=== PATIENT | female | born 1985 | race Caucasian/White ===

== ENCOUNTER 2017-04-18 06:26 | Emergency (ER) | payer OTHER ==
--- NOTE | 2017-04-18 11:48 | DIAGNOSTIC IMAGING REPORT ---
PROCEDURE: US OB 1ST TRIMESTER W/TRANSVAG INDICATION: ABNORMAL BLEEDING TECHNIQUE: Kate scale, color, and spectral Doppler transabdominal and endovaginal sonographic images of the first trimester gravid uterus were obtained. COMPARISON: None. FINDINGS: TRANSABDOMINAL SCANS: There is an early intrauterine gestational sac. TRANSVAGINAL SCANS: There is an early viable intrauterine with cardiac activity (162). [place]-rump length 2.0 cm (8.5 weeks). Normal amniotic fluid. There is a 2.1 cm subchorionic hemorrhage. Normal cervix length (4 cm). Right ovary is of normal size with a partially collapsed right ovarian cyst. Small amount of free fluid. There is a 3 cm left ovarian cyst. IMPRESSION: 1. Viable intrauterine at 8.5 weeks menstrual age (plus or minus 0.7 weeks). CYNDIE is 11/24/2017. 2. There is a 2.1 cm subchorionic hemorrhage. 3. There is a partially collapsed right ovarian cyst with small amount of free fluid in the pelvis. A concurrent right adnexal ectopic is unlikely (1:40,000). 4. There is a 3 cm left ovarian simple cyst. 5. Findings discussed with Dr. Harrison.
--- NOTE | 2017-04-18 11:56 | ED CLINICAL REPORT ---
Clinical Report - Physicians/Mid Levels [facility] [address] [place] [address] 04/18/2017 6:27 Patient: ROSE MARIE HENDRICKSON Time Seen: 0630. Arrived- By private vehicle. Historian- patient. HISTORY OF PRESENT ILLNESS Chief Complaint: VAGINAL BLEEDING. This started today. She has had heavy vaginal bleeding (large clot described as tennis ball sized). Is still present but is improving. It was abrupt in onset and has been intermittent but is not gone now. Gestational age is weeks, (about 12 weeks ). (Has care. No ultrasound. Blood work ordered. ). Similar symptoms previously: None. Recent medical care: Not recently seen/assessed. REVIEW OF SYSTEMS No nausea, vomiting, black stools, bloody stools or double vision. No fainting episodes, fever, difficulty breathing, chest pain or skin rash. no weakness. no dizziness. All systems otherwise negative, except as recorded above. PAST HISTORY See nurses notes. Medications: None. Allergies: None. SOCIAL HISTORY Never smoker. No alcohol use or drug use. No recent travel. Is a local resident. ADDITIONAL NOTES The nursing notes have been reviewed. PHYSICAL EXAM Vital Signs: 04/18/2017 06:31 BP: 142/37. HR: 99. RR: 14. O2 saturation: 100%. Temp: 97.6 F. Pain level now: 0/10. Blood pressure normal. Oxygen saturation normal. Appearance: Alert. Oriented X3. No acute distress. HEENT: Normal external inspection. Eyes: No pale conjunctivae. ENT: Pharynx normal. No pharyngeal erythema. CVS: Heart sounds normal. Respiratory: No respiratory distress. Breath sounds normal. Chest nontender. Abdomen: Soft and nontender. Bowel sounds normal. Pelvic: Normal external exam. No contractions present. (mild moderate right adnexal tenderness with left sided tenderness. No adnexal masses. No active bleeding. Normal-appearing external female genitalia. Cervical os is closed. No cervical motion tenderness. No lesions. No abnormal discharge. Exam performed at all times with MARY noriega). Skin: Skin warm and dry. Normal skin color. No rash. Normal skin turgor. Extremities: Extremities nontender. No pathologic edema. LABS, X-RAYS, AND EKG Pelvic Sonogram: viable intrauterine with possible ectopic in the right adnexa. Physiologic free fluid. not concerning for blood. The study was independently viewed by me and interpreted by the radiologist. The study was discussed with the radiologist (Via phone). Laboratory Tests: UA-Culture if indicated: (DAWSON: 04/18/2017 08:05) ( [facility] 04/18/2017 08:36) Final results Test Result Flag Units (Reference) URINE COLOR YELLOW URINE APPEARANCE CLEAR URINE GLUCOSE NEGATIVE (NEGATIVE) URINE BILIRUBIN NEGATIVE (NEGATIVE) URINE KETONE NEGATIVE (NEGATIVE) URINE SPECIFIC GRAVITY <= 1.005 L (1.010-1.030) URINE PH 6.0 (5.0-8.0) URINE PROTEIN NEGATIVE (NEGATIVE) URINE UROBILINOGEN 0.2 EU/dL (0.2-1.0) URINE NITRITE NEGATIVE (NEGATIVE) URINE BLOOD NEGATIVE (NEGATIVE) URINE LEUK ESTERASE NEGATIVE (NEGATIVE) URINE RBC RARE rbc/hpf (0-1) URINE WBC NONE SEEN wbc/hpf (0-1) URINE EPITHELIAL CELLS 1-3 EPI/hpf (0-5) URINE BACTERIA FEW (1+) (NONE SEEN) URINE COMMENT CULT NOT INDICATED URINE CULTURES ARE SET-UP BASED ON THE FOLLOWING CRITERIA:POSITIVE NITRITEPOSITIVE LEUKOCYTE ESTERASEGREATER THAN 10 WHITE BLOOD CELLSMODERATE (2+) OR GREATER BACTERIA CBC w Diff: (DAWSON: 04/18/2017 07:00) ( [facility] 04/18/2017 07:12) Final results Test Result Flag Units (Reference) WHITE BLOOD COUNT 10.2 K/uL (4.5-11.5) RED BLOOD COUNT 4.23 M/uL (4.00-5.20) HEMOGLOBIN 12.8 gm/dL (12.0-16.0) HEMATOCRIT 38.0 % (36.0-46.0) MEAN CELL VOLUME 90 fL (80-100) MEAN CORPUSCULAR HGB 30 pg (26-34) MEAN CORPUSCULAR HGB CONC 34 g/dL (31-37) RED CELL DISTRIBUTION WIDTH 12.8 % (11.6-14.8) PLATELET COUNT 294 K/uL (150-400) NEUTROPHIL % 74.3 % (50-75) LYMPH % 18.9 L % (25-40) MONO % 5.8 % (3-14) EOSINOPHIL % 0.7 % (0-4) BASOPHIL % 0.3 % (0-2) PT with INR: (DAWSON: 04/18/2017 07:00) ( [facility] 04/18/2017 07:21) Final results Test Result Flag Units (Reference) INR 1.0 (0.8-1.2) Low Intensity Therapy: INR 1.5-2.0 PT range 18.5-23.1Mod.Intensity Therapy: INR 2.0-3.0 PT range 23.1-31.5High Intensity Therapy: INR 2.5-3.5 PT range 27.4-35.5High Intensity Therapy 2: INR 3.0-4.0 PT range 31.5-39.3 CMP: (DAWSON: 04/18/2017 07:00) ( [facility] 04/18/2017 07:45) Final results Test Result Flag Units (Reference) GLUCOSE 104 mg/dL (70-110) BUN 6 L mg/dL (7-18) CREATININE 0.7 mg/dL (0.6-1.3) Estimated GFR >60 mL/min Estimated GFR- >60 mL/min Note: Persistent reduction over 3 months in eGFR<60 mL/min/1.73 m2 defines CKD. Patients with eGFR values>=60 mL/min/1.73 m2 may also have CKD if evidence ofpersistent proteinuria. Additional information may be foundat www.kidney.org. SODIUM 138 mmol/L (136-145) POTASSIUM 3.6 mmol/L (3.5-5.1) CHLORIDE 103 mmol/L (98-107) CARBON DIOXIDE 23 mmol/L (21-32) CALCIUM 9.0 mg/dL (8.5-10.1) TOTAL PROTEIN 7.5 g/dL (6.4-8.2) ALBUMIN 3.6 g/dL (3.3-5.0) BILIRUBIN, TOTAL 0.3 mg/dL (0.0-1.0) ALKALINE PHOSPHATASE 66 U/L (46-116) AST (SGOT) 11 L U/L (15-37) ALT (SGPT) 18 U/L (12-78) BETA HCG, QUANTITATIVE 579645 mIU/mL REFERENCE RANGE:Adult Males: <2 mIU/mLNon- Females: <6 mIU/mL Females:Approximate Approximate hCGGestational Age Range (mIU/mL) 0-1 week 0-501-2 weeks 40-3002-3 weeks 100-07697-6 weeks 500-62462-4 months 5,000-200,0002-3 months 10,000-100,0002nd trimester 3,000-50,0003rd trimester 1,000-50,000 Wet Prep: (DAWSON: 04/18/2017 07:12) ( [facility] 04/18/2017 07:30) Final results SPECIMEN DESCRIPTION: DARK BLOOD Test Result Flag Units (Reference) WET [place] CLUE CELLS:: NONE EPITHELIAL CELLS: RARE -- SOURCE?: VAGINAL WHITE BLOOD CELLS: NONE TRICHOMONAS:: NONE -- YEAST:: NONE Type & Screen: (DAWSON: 04/18/2017 07:00) ( [facility] 04/18/2017 09:45) Final results Test Result Flag Units (Reference) PATIENT BLOOD TYPE Above is a corrected result. Previously reported on ( [facility] 04/18/2017 09:17) as: PATIENT BLOOD TYPE ANTIBODY SCREEN NEGATIVE Type & Rh: (DAWSON: 04/18/2017 07:00) ( [facility] 04/18/2017 07:23) Final results Test Result Flag Units (Reference) PATIENT BLOOD TYPE O Positive . PROGRESS AND PROCEDURES Course of Care: the patient is a 31-year-old female who is a presenting for evaluation of bleeding during . Patient states that she has not had a ultrasound yet however has established care with an TRANSIT SURVEY WORKER. Patient states that her weight TRANSIT SURVEY WORKER is over at [facility]. Patient is reporting some suprapubic abdominal cramping more on the right. Patient reports bleeding improving at this time. Differential diagnosis includes ectopic versus viable intrauterine versus threatened . Laboratory studies have been ordered. Ultrasound is also been ordered as well. Offered pain medication however patient declines at this time. Patient is agreeable to the treatment plan. The patient's workup was remarkable for the findings above. Because the patient's abnormal ultrasound, had a discussion with TRANSIT SURVEY WORKER. Later confirm the abnormal ultrasound with radiology. Because of the abnormal ultrasound, TRANSIT SURVEY WORKER head stated that they will come in and see the patient. Had discussion with TRANSIT SURVEY WORKER and the options at this time would be expectant management versus surgery. Patient was updated on the plan of care as well as her diagnosis. All questions have been answered. We are currently awaiting TRANSIT SURVEY WORKER's bedside evaluation. TRANSIT SURVEY WORKER consult obtained. The patient will be monitored closely as an outpatient with repeat ultrasound. Did not fill patient is being admitted to the hospital car further emergency department workup/evaluation. Patient has a nonsurgical abdomen. Discussed with the patient workup here in emergency department including diagnosis, home care, follow-up, and return precautions. All questions have been answered. The patient expressed understanding of these instructions and was agreeable to them. Consult obtained. TRANSIT SURVEY WORKER. Disposition: Discharged. Condition: good. CLINICAL IMPRESSION Acute pelvic pain. Threatened . (Electronically signed by Renzo Garcia Dr. 04/20/2017 16:33) Time Seen: 629. Arrived- By private vehicle. Historian- patient. HISTORY OF PRESENT ILLNESS Chief Complaint: VAGINAL BLEEDING. This started today. She has had heavy vaginal bleeding (large clot described as tennis ball sized). Is still present but is improving. It was abrupt in onset and has been intermittent but is not gone now. Gestational age is weeks, (about 12 weeks ). (Has care. No ultrasound. Blood work ordered. ). Similar symptoms previously: None. Recent medical care: Not recently seen/assessed. REVIEW OF SYSTEMS No nausea, vomiting, black stools, bloody stools or double vision. No fainting episodes, fever, difficulty breathing, chest pain or skin rash. no weakness. no dizziness. All systems otherwise negative, except as recorded above. PAST HISTORY See nurses notes. Medications: None. Allergies: None. SOCIAL HISTORY Never smoker. No alcohol use or drug use. No recent travel. Is a local resident. ADDITIONAL NOTES The nursing notes have been reviewed. PHYSICAL EXAM Vital Signs: 04/18/2017 06:31 BP: 142/37. HR: 99. RR: 14. O2 saturation: 100%. Temp: 97.6 F. Pain level now: 0/10. Blood pressure normal. Oxygen saturation normal. Appearance: Alert. Oriented X3. No acute distress. HEENT: Normal external inspection. Eyes: No pale conjunctivae. ENT: Pharynx normal. No pharyngeal erythema. CVS: Heart sounds normal. Respiratory: No respiratory distress. Breath sounds normal. Chest nontender. Abdomen: Soft and nontender. Bowel sounds normal. Pelvic: Normal external exam. No contractions present. (mild moderate right adnexal tenderness with left sided tenderness. No adnexal masses. No active bleeding. Normal-appearing external female genitalia. Cervical os is closed. No cervical motion tenderness. No lesions. No abnormal discharge. Exam performed at all times with MARY noriega). Skin: Skin warm and dry. Normal skin color. No rash. Normal skin turgor. Extremities: Extremities nontender. No pathologic edema. LABS, X-RAYS, AND EKG Pelvic Sonogram: viable intrauterine with possible ectopic in the right adnexa. Physiologic free fluid. not concerning for blood. The study was independently viewed by me and interpreted by the radiologist. The study was discussed with the radiologist (Via phone). Laboratory Tests: UA-Culture if indicated: (DAWSON: 04/18/2017 08:05) ( [facility] 04/18/2017 08:36) Final results Test Result Flag Units (Reference) URINE COLOR YELLOW URINE APPEARANCE CLEAR URINE GLUCOSE NEGATIVE (NEGATIVE) URINE BILIRUBIN NEGATIVE (NEGATIVE) URINE KETONE NEGATIVE (NEGATIVE) URINE SPECIFIC GRAVITY <= 1.005 L (1.010-1.030) URINE PH 6.0 (5.0-8.0) URINE PROTEIN NEGATIVE (NEGATIVE) URINE UROBILINOGEN 0.2 EU/dL (0.2-1.0) URINE NITRITE NEGATIVE (NEGATIVE) URINE BLOOD NEGATIVE (NEGATIVE) URINE LEUK ESTERASE NEGATIVE (NEGATIVE) URINE RBC RARE rbc/hpf (0-1) URINE WBC NONE SEEN wbc/hpf (0-1) URINE EPITHELIAL CELLS 1-3 EPI/hpf (0-5) URINE BACTERIA FEW (1+) (NONE SEEN) URINE COMMENT CULT NOT INDICATED URINE CULTURES ARE SET-UP BASED ON THE FOLLOWING CRITERIA:POSITIVE NITRITEPOSITIVE LEUKOCYTE ESTERASEGREATER THAN 10 WHITE BLOOD CELLSMODERATE (2+) OR GREATER BACTERIA CBC w Diff: (DAWSON: 04/18/2017 07:00) ( [facility] 04/18/2017 07:12) Final results Test Result Flag Units (Reference) WHITE BLOOD COUNT 10.2 K/uL (4.5-11.5) RED BLOOD COUNT 4.23 M/uL (4.00-5.20) HEMOGLOBIN 12.8 gm/dL (12.0-16.0) HEMATOCRIT 38.0 % (36.0-46.0) MEAN CELL VOLUME 90 fL (80-100) MEAN CORPUSCULAR HGB 30 pg (26-34) MEAN CORPUSCULAR HGB CONC 34 g/dL (31-37) RED CELL DISTRIBUTION WIDTH 12.8 % (11.6-14.8) PLATELET COUNT 294 K/uL (150-400) NEUTROPHIL % 74.3 % (50-75) LYMPH % 18.9 L % (25-40) MONO % 5.8 % (3-14) EOSINOPHIL % 0.7 % (0-4) BASOPHIL % 0.3 % (0-2) PT with INR: (DAWSON: 04/18/2017 07:00) ( [facility] 04/18/2017 07:21) Final results Test Result Flag Units (Reference) INR 1.0 (0.8-1.2) Low Intensity Therapy: INR 1.5-2.0 PT range 18.5-23.1Mod.Intensity Therapy: INR 2.0-3.0 PT range 23.1-31.5High Intensity Therapy: INR 2.5-3.5 PT range 27.4-35.5High Intensity Therapy 2: INR 3.0-4.0 PT range 31.5-39.3 CMP: (DAWSON: 04/18/2017 07:00) ( [facility] 04/18/2017 07:45) Final results Test Result Flag Units (Reference) GLUCOSE 104 mg/dL (70-110) BUN 6 L mg/dL (7-18) CREATININE 0.7 mg/dL (0.6-1.3) Estimated GFR >60 mL/min Estimated GFR- >60 mL/min Note: Persistent reduction over 3 months in eGFR<60 mL/min/1.73 m2 defines CKD. Patients with eGFR values>=60 mL/min/1.73 m2 may also have CKD if evidence ofpersistent proteinuria. Additional information may be foundat [email or web address].org. SODIUM 138 mmol/L (136-145) POTASSIUM 3.6 mmol/L (3.5-5.1) CHLORIDE 103 mmol/L (98-107) CARBON DIOXIDE 23 mmol/L (21-32) CALCIUM 9.0 mg/dL (8.5-10.1) TOTAL PROTEIN 7.5 g/dL (6.4-8.2) ALBUMIN 3.6 g/dL (3.3-5.0) BILIRUBIN, TOTAL 0.3 mg/dL (0.0-1.0) ALKALINE PHOSPHATASE 66 U/L (46-116) AST (SGOT) 11 L U/L (15-37) ALT (SGPT) 18 U/L (12-78) BETA HCG, QUANTITATIVE 040289 mIU/mL REFERENCE RANGE:Adult Males: <2 mIU/mLNon- Females: <6 mIU/mL Females:Approximate Approximate hCGGestational Age Range (mIU/mL) 0-1 week 0-501-2 weeks 40-3002-3 weeks 100-25552-6 weeks 500-95658-3 months 5,000-200,0002-3 months 10,000-100,0002nd trimester 3,000-50,0003rd trimester 1,000-50,000 Wet Prep: (DAWSON: 04/18/2017 07:12) ( [facility] 04/18/2017 07:30) Final results SPECIMEN DESCRIPTION: DARK BLOOD Test Result Flag Units (Reference) WET [place] CLUE CELLS:: NONE EPITHELIAL CELLS: RARE -- SOURCE?: VAGINAL WHITE BLOOD CELLS: NONE TRICHOMONAS:: NONE -- YEAST:: NONE Type & Screen: (DAWSON: 04/18/2017 07:00) ( [facility] 04/18/2017 09:17) IP Test Result Flag Units (Reference) PATIENT BLOOD TYPE Type & Rh: (DAWSON: 04/18/2017 07:00) ( [facility] 04/18/2017 07:23) Final results Test Result Flag Units (Reference) PATIENT BLOOD TYPE O Positive . PROGRESS AND PROCEDURES Course of Care: the patient is a 31-year-old female who is a presenting for evaluation of bleeding during . Patient states that she has not had a ultrasound yet however has established care with an TRANSIT SURVEY WORKER. Patient states that her weight TRANSIT SURVEY WORKER is over at [facility]. Patient is reporting some suprapubic abdominal cramping more on the right. Patient reports bleeding improving at this time. Differential diagnosis includes ectopic versus viable intrauterine versus threatened . Laboratory studies have been ordered. Ultrasound is also been ordered as well. Offered pain medication however patient declines at this time. Patient is agreeable to the treatment plan. The patient's workup was remarkable for the findings above. Because the patient's abnormal ultrasound, had a discussion with TRANSIT SURVEY WORKER. Later confirm the abnormal ultrasound with radiology. Because of the abnormal ultrasound, TRANSIT SURVEY WORKER head stated that they will come in and see the patient. Had discussion with TRANSIT SURVEY WORKER and the options at this time would be expectant management versus surgery. Patient was updated on the plan of care as well as her diagnosis. All questions have been answered. We are currently awaiting TRANSIT SURVEY WORKER's bedside evaluation. Ebonie note: This patient was signed out to me by Dr. Garcia, pending evaluation by Dr. Harrison for a possible heterotopic . Dr. Harrison did come to the emergency department and normally evaluated the patient but spoke with 2 radiologist regarding the patient's ultrasound. It was felt, given the findings on ultrasound, the radiology interpretation, and the patient's physical exam findings, that the likelihood of a heterotopic is extremely low. Dr. Harrison did state that in light of all this, the patient can follow up with her TRANSIT SURVEY WORKER later this week for a repeat ultrasound, to determine whether there is any change in the area of question. Patient was stable throughout her stay in the emergency department and was deemed stable for discharge home. Consult obtained. TRANSIT SURVEY WORKER. Patient counseled in person regarding the patient's stable condition, test results, diagnosis and need for follow-up. Concerns were addressed. Old medical records reviewed. Disposition: Discharged. Condition: stable. CLINICAL IMPRESSION First trimester . Threatened . INSTRUCTIONS Drink plenty of fluids. (You will need to follow up with your TRANSIT SURVEY WORKER toward the end of the week, to have a repeat ultrasound. You should call first thing on Wednesday morning, which is tomorrow, to make an appointment for this. Please let them know that your ultrasound showed a possible in the uterus and a possible outside of the uterus, though the likelihood of a outside of the uterus with one in the uterus is very low. Nonetheless, it is important for you to follow up and get this sorted out.). Warnings: Further evaluation is necessary. GENERAL WARNINGS: Return or contact your physician immediately if your condition worsens or changes unexpectedly, if not improving as expected, or if other problems arise. Follow-up: Follow up with an staffing clerk. Call for the next available appointment. Understanding of the discharge instructions verbalized by patient. (Electronically signed by Sierra Loomis MD 04/18/2017 23:50)
--- NOTE | 2017-04-18 11:56 | ED NURSING NOTES ---
Clinical Report - Nurses [facility] [address] [place] [address] 04/18/2017 6:27 Patient: ROSE MARIE HENDRICKSON TRIAGE Triage time 06:31. Acuity: LEVEL 3. Chief Complaint: PASSING TISSUE. 06:44 04/18/17. Alert. No acute distress. SEPSIS SCREEN: Sepsis Screen. Negative (no infection suspected/documented). LANE COMA SCORE: [place] Coma Scale: 15- eyes open spontaneously (4); best verbal response- oriented x 4 (5); best motor response- obeys commands (6). --06:44 Heide Martin R.N. 06:31 04/18/17. BP: 142/37. HR: 99. RR: 14. O2 saturation: 100% on room air. Temp: 97.6 F. Pain level now: 0/10. --06:44 Heide Martin R.N. Medications None. --06:35 Heide Martin R.N. Allergies None. --06:35 Heide Martin R.N. History Arrived by private vehicle. Historian: patient. Primary physician (Dr Davison). This started today. ( Patient states she passed a large clot about the size of a eagle this morning). She has had vomiting. ( cramping). PAST MEDICAL HX: Immunizations: up-to-date. Confirmed : patient states she is around 12-13 weeks . SOCIAL HX: Never smoker. No alcohol use or drug use. FALL RISK ASSESSMENT: Fall risk assessment completed. No fall risk identified. NUTRITIONAL RISK ASSESSMENT: The nutritional risk assessment revealed no deficiencies. FUNCTIONAL ASSESSMENT: Functional assessment: no impairments noted. LEARNING NEEDS ASSESSMENT: The learning needs assessment revealed no barriers. SKIN INTEGRITY ASSESSMENT: Skin integrity risk assessment completed. No skin integrity risk identified. --06:44 Heide Martin R.N. PROBLEMS: Pharyngitis. --06:35 Heide Martin R.N. ADDITIONAL SURGERIES: Tonsillectomy. [place] teeth . --06:35 Heide Martin R.N. Interventions ID band on patient. To treatment room. --06:44 Heide Martin R.N. PHYSICAL ASSESSMENT 06:45 04/18/17. Ambulatory to room. GENERAL / NEURO / PSYCH: Alert. Oriented X 4. Appears in no acute distress. HEENT: Mucous membranes are pink. RESPIRATORY: Respirations not labored. CVS: Capillary refill less than 2 seconds. GI / : Abdomen soft and nontender. SKIN: Skin is warm and dry. --06:45 Heide Martin R.N. NURSING PROGRESS NOTES 06:45 04/18/17. Patient gowned. Two patient identifiers checked. Call light placed in reach. Side rails up x 1. Bed placed in lowest position. Brakes of bed on. Patient ready for evaluation- chart flagged and notification provided. --06:45 Heide Martin R.N. 06:48 04/18/2017 Two (2) unsuccessful IV access attempts including the right antecubital space and forearm. --07:03 Heide Martin R.N. 06:59 04/18/2017 Site #1 started via IV in the left antecubital space with an 20g angiocath; one attempt. Blood drawn: rainbow set. Labeled in the presence of the patient and sent to the lab. Saline lock flushed with 5 mL saline (placed by MARY Cadet). --07:04 Heide Martin R.N. 07:18 04/18/17. ( assisted with pelvic exam performed by ED phys.). --07:18 Heide Martin R.N. Care transferred and report received (MARY Jaeger). --07:24 Surendra Alvares R.N. ( US here at the bedside). --08:27 Surendra Alvares R.N. 09:20 04/18/17. BP: 101/56. HR: 81. RR: 16. O2 saturation: 100% on room air. Pain level now: 0/10. --09:23 Surendra Alvares R.N. Head of bed elevated. Reassurance given. Call light placed in reach. Bed placed in lowest position. Brakes of bed on. ( Resting quietly, c/o feeling dehydrated, no pain.). --09:23 Surendra Alvares R.N. <<STRICKEN ENTRY-- 10:28 04/18/2017 Started bag #2 1000 mL IV Fluids IV NS (Saline); at 1000 mL/hr via site #1 via IV pump. Confirmed 5 rights. --10:28 Heidi Meza R.N. --END STRIKE>> Change to Details. --10:29 Heidi Meza R.N. 10:28 04/18/2017 Started bag #2 1000 IV Fluids IV NS (Saline); at 1000 mL/hr via site #1 via IV pump. Confirmed 5 rights. (Pt already had bag #1, hanging on wall at [facility] and not attached.). --10:29 Heidi Meza R.N. 10:29 04/18/17. BP: 86/36. HR: 84. RR: 18. O2 saturation: 99%. --10:31 Heidi Meza R.N. 10:36 04/18/2017 Zofran (Ondansetron HCl) IVP 8 mg given over 4 minute(s) via site #1. Allergies verified and confirmed 5 rights. --10:36 Heidi Meza R.N. 10:37 04/18/17. BP: 101/52. HR: 86. RR: 16. O2 saturation: 100%. --10:38 Heidi Meza R.N. late entry -10:30. ( OB doctor here to see pt). --10:52 Surendra Alvares R.N. 11:00 04/18/17. BP: 109/60. HR: 93. RR: 16. O2 saturation: 100% on room air. Pain level now: 02/15. --11:28 Surendra Alvares R.N. Pulse oximeter and NIBP monitor placed on patient; monitor alarms on. Head of bed elevated. Reassurance given. Call light placed in reach. Bed placed in lowest position. Brakes of bed on. --11:28 Surendra Alvares R.N. 11:32 04/18/2017 IV Fluids IV NS Bag Change: bag #2 completed. Total amount infused: 1000. STARTED bag #3 (1000 mL) at 125 mL/hr via IV pump. Confirmed 5 rights. IV patency established. IV site checked: no pain, redness, or swelling. IV flushed thoroughly. --11:32 Surendra Alvares R.N. 12:25 04/18/2017 IV Fluids IV NS Discontinued: bag #3 upon discharge. Total amount infused: 120 mL. IV patency established. IV site checked: no pain, redness, or swelling. IV flushed thoroughly. --12:28 Surendra Alvares R.N. 12:00 04/18/17. BP: 101/56. HR: 82. RR: 16. O2 saturation: 98% on room air. --12:32 Surendra Alvares R.N. DISPOSITION / DISCHARGE 12:04/18/2017 Site #1 removed upon discharge. Bandage applied. --12:27 Surendra Alvares R.N. Departure time: 1226. Condition at departure: improved and stable. No learning barriers present. Discharge instructions provided and reviewed with the patient. Reviewed warnings. Reviewed referrals. Patient verbalized understanding. Written instructions provided in Macedonian. The patient was discharged by the physician. She was discharged home and accompanied by spouse. She left the Emergency Department ambulatory and via private vehicle. Spouse driving. --12:30 Surendra Alvares R.N. 12:25 04/18/17. BP: 101/56 (regular adult cuff) taken on the right arm, while lying. HR: 82. RR: 16. O2 saturation: 99% on room air. Temp: 98.2 F (oral). Pain level now: 03/17. --12:30 Surendra Alvares R.N. Locked/Released at 04/18/2017 18:38 by Surendra Alvares R.N.
--- NOTE | 2017-04-18 11:56 | ED ORDER SUMMARY ---
..... Patient: ROSE MARIE HENDRICKSON OrderSheet [facility] VisitID: [id number] [place] [address] 31y, F Registration Date/Time: 04/18/2017 ORDER SHEET Weight: Allergies: None GENERAL ORDERS: GC/Chlamydia (Cervix) (dark blood) Urgent (06:45 04/18/2017 Daphne Rhodes) (Ack 6:47 CHagerty ER Gun Perforator Loader) (Collected 7:19 RMarsden R.N.) (7:23 JSimbeck R.N.) Wet Prep (Vaginal) (dark blood) Urgent (06:45 04/18/2017 Daphne Rhodes) (Ack 6:47 CHagerty ER Gun Perforator Loader) (Collected 7:19 RMarsden R.N.) (7:23 JSimbeck R.N.) CBC w Diff Urgent (06:46 04/18/2017 Daphne Rhodes) (Ack 6:47 CHagmejia ER Gun Perforator Loader) (Collected 7:19 RMarsden R.N.) (7:23 JSimbeck R.N.) CMP Urgent (06:46 04/18/2017 Daphne Rhodes) (Ack 6:47 Nicky ER Gun Perforator Loader) (Collected 7:19 RMarsden R.N.) (7:23 JSimbeck R.N.) UA-Culture if indicated Urgent (06:46 04/18/2017 Daphne Rhodes) (Ack 6:47 Nicky ER Gun Perforator Loader) (Collected 7:19 RMarsden R.N.) (8:09 JSimbeck R.N.) PT with INR Urgent (06:46 04/18/2017 Daphne Rhodes) (Ack 6:47 Nicky ER Gun Perforator Loader) (Collected 7:19 RMarsden R.N.) (7:23 MAYAimbeck R.N.) Type & Rh Urgent (06:46 04/18/2017 Daphne Rhodes) (Ack 6:47 Nicky ER Gun Perforator Loader) (Collected 7:19 RMarsden R.N.) (7:44 MAYAimbeck R.N.) Serum Quantitative Urgent (06:46 04/18/2017 Daphne Rhodes) (Ack 6:47 CHagerty ER Gun Perforator Loader) (Collected 7:19 RMarsden R.N.) (7:23 JSimbeck R.N.) Pelvic Exam Setup (06:46 04/18/2017 Daphne Rhodes) (7:19 RMbetsy R.N.) US OB 1st Trimester (February) Urgent (06:52 04/18/2017 Daphne Rhodes) (Ack 6:53 CHagerty ER Gun Perforator Loader) (9:06 KHoerner) (Cancelled: Duplicate Order9:17 Daphne Rhodes) Type & Screen Urgent (09:08 04/18/2017 Daphne Rhodes) (Ack 9:10 KHoerner) (9:16 KHoerner) US OB 1st Trimester w Transvag (february) Urgent (09:17 04/18/2017 Daphne Rhodes) (9:21 KHoerner) MEDICATION ORDERS: IV FLUIDS: IV NS : initial bolus 1000 mL (1000 mL/hr), then 125 mL/hr for 8h (NOW) (10:22 04/18/2017 Daphne Rhodes) (10:28 LSullivan R.N.) Zofran IV 8 mg (NOW) (10:36 04/18/2017 LSullivan R.N. verbal order read back to Yennifer DOUGLASS) (10:36 LSullivan R.N.) ORDER SHEET NOTES: [Electronically signed by Surendra Alvares R.N. (18:38 04/18/2017)] [Electronically signed by Sierra Loomis MD (23:50 04/18/2017)] [Electronically signed by Renzo Garcia Dr. (16:33 04/20/2017)] [Electronically locked/signed by Surendra Alvares R.N. (18:38 04/18/2017)]
--- NOTE | 2017-04-18 11:56 | ED CLINICAL REPORT ---
Clinical Report - Physicians/Mid Levels [facility] [address] [place] [address] 04/18/2017 6:27 Patient: ROSE MARIE HENDRICKSON Time Seen: 0630. Arrived- By private vehicle. Historian- patient. HISTORY OF PRESENT ILLNESS Chief Complaint: VAGINAL BLEEDING. This started today. She has had heavy vaginal bleeding (large clot described as tennis ball sized). Is still present but is improving. It was abrupt in onset and has been intermittent but is not gone now. Gestational age is weeks, (about 12 weeks ). (Has care. No ultrasound. Blood work ordered. ). Similar symptoms previously: None. Recent medical care: Not recently seen/assessed. REVIEW OF SYSTEMS No nausea, vomiting, black stools, bloody stools or double vision. No fainting episodes, fever, difficulty breathing, chest pain or skin rash. no weakness. no dizziness. All systems otherwise negative, except as recorded above. PAST HISTORY See nurses notes. Medications: None. Allergies: None. SOCIAL HISTORY Never smoker. No alcohol use or drug use. No recent travel. Is a local resident. ADDITIONAL NOTES The nursing notes have been reviewed. PHYSICAL EXAM Vital Signs: 04/18/2017 06:31 BP: 142/37. HR: 99. RR: 14. O2 saturation: 100%. Temp: 97.6 F. Pain level now: 0/10. Blood pressure normal. Oxygen saturation normal. Appearance: Alert. Oriented X3. No acute distress. HEENT: Normal external inspection. Eyes: No pale conjunctivae. ENT: Pharynx normal. No pharyngeal erythema. CVS: Heart sounds normal. Respiratory: No respiratory distress. Breath sounds normal. Chest nontender. Abdomen: Soft and nontender. Bowel sounds normal. Pelvic: Normal external exam. No contractions present. (mild moderate right adnexal tenderness with left sided tenderness. No adnexal masses. No active bleeding. Normal-appearing external female genitalia. Cervical os is closed. No cervical motion tenderness. No lesions. No abnormal discharge. Exam performed at all times with MARY noriega). Skin: Skin warm and dry. Normal skin color. No rash. Normal skin turgor. Extremities: Extremities nontender. No pathologic edema. LABS, X-RAYS, AND EKG Pelvic Sonogram: viable intrauterine with possible ectopic in the right adnexa. Physiologic free fluid. not concerning for blood. The study was independently viewed by me and interpreted by the radiologist. The study was discussed with the radiologist (Via phone). Laboratory Tests: UA-Culture if indicated: (DAWSON: 04/18/2017 08:05) ( [facility] 04/18/2017 08:36) Final results Test Result Flag Units (Reference) URINE COLOR YELLOW URINE APPEARANCE CLEAR URINE GLUCOSE NEGATIVE (NEGATIVE) URINE BILIRUBIN NEGATIVE (NEGATIVE) URINE KETONE NEGATIVE (NEGATIVE) URINE SPECIFIC GRAVITY <= 1.005 L (1.010-1.030) URINE PH 6.0 (5.0-8.0) URINE PROTEIN NEGATIVE (NEGATIVE) URINE UROBILINOGEN 0.2 EU/dL (0.2-1.0) URINE NITRITE NEGATIVE (NEGATIVE) URINE BLOOD NEGATIVE (NEGATIVE) URINE LEUK ESTERASE NEGATIVE (NEGATIVE) URINE RBC RARE rbc/hpf (0-1) URINE WBC NONE SEEN wbc/hpf (0-1) URINE EPITHELIAL CELLS 1-3 EPI/hpf (0-5) URINE BACTERIA FEW (1+) (NONE SEEN) URINE COMMENT CULT NOT INDICATED URINE CULTURES ARE SET-UP BASED ON THE FOLLOWING CRITERIA:POSITIVE NITRITEPOSITIVE LEUKOCYTE ESTERASEGREATER THAN 10 WHITE BLOOD CELLSMODERATE (2+) OR GREATER BACTERIA CBC w Diff: (DAWSON: 04/18/2017 07:00) ( [facility] 04/18/2017 07:12) Final results Test Result Flag Units (Reference) WHITE BLOOD COUNT 10.2 K/uL (4.5-11.5) RED BLOOD COUNT 4.23 M/uL (4.00-5.20) HEMOGLOBIN 12.8 gm/dL (12.0-16.0) HEMATOCRIT 38.0 % (36.0-46.0) MEAN CELL VOLUME 90 fL (80-100) MEAN CORPUSCULAR HGB 30 pg (26-34) MEAN CORPUSCULAR HGB CONC 34 g/dL (31-37) RED CELL DISTRIBUTION WIDTH 12.8 % (11.6-14.8) PLATELET COUNT 294 K/uL (150-400) NEUTROPHIL % 74.3 % (50-75) LYMPH % 18.9 L % (25-40) MONO % 5.8 % (3-14) EOSINOPHIL % 0.7 % (0-4) BASOPHIL % 0.3 % (0-2) PT with INR: (DAWSON: 04/18/2017 07:00) ( WygRcvd 04/18/2017 07:21) Final results Test Result Flag Units (Reference) INR 1.0 (0.8-1.2) Low Intensity Therapy: INR 1.5-2.0 PT range 18.5-23.1Mod.Intensity Therapy: INR 2.0-3.0 PT range 23.1-31.5High Intensity Therapy: INR 2.5-3.5 PT range 27.4-35.5High Intensity Therapy 2: INR 3.0-4.0 PT range 31.5-39.3 CMP: (DAWSON: 04/18/2017 07:00) ( WygRcvd 04/18/2017 07:45) Final results Test Result Flag Units (Reference) GLUCOSE 104 mg/dL (70-110) BUN 6 L mg/dL (7-18) CREATININE 0.7 mg/dL (0.6-1.3) Estimated GFR >60 mL/min Estimated GFR- >60 mL/min Note: Persistent reduction over 3 months in eGFR<60 mL/min/1.73 m2 defines CKD. Patients with eGFR values>=60 mL/min/1.73 m2 may also have CKD if evidence ofpersistent proteinuria. Additional information may be foundat www.kidney.org. SODIUM 138 mmol/L (136-145) POTASSIUM 3.6 mmol/L (3.5-5.1) CHLORIDE 103 mmol/L (98-107) CARBON DIOXIDE 23 mmol/L (21-32) CALCIUM 9.0 mg/dL (8.5-10.1) TOTAL PROTEIN 7.5 g/dL (6.4-8.2) ALBUMIN 3.6 g/dL (3.3-5.0) BILIRUBIN, TOTAL 0.3 mg/dL (0.0-1.0) ALKALINE PHOSPHATASE 66 U/L (46-116) AST (SGOT) 11 L U/L (15-37) ALT (SGPT) 18 U/L (12-78) BETA HCG, QUANTITATIVE 421078 mIU/mL REFERENCE RANGE:Adult Males: <2 mIU/mLNon- Females: <6 mIU/mL Females:Approximate Approximate hCGGestational Age Range (mIU/mL) 0-1 week 0-501-2 weeks 40-3002-3 weeks 100-62177-4 weeks 500-39950-2 months 5,000-200,0002-3 months 10,000-100,0002nd trimester 3,000-50,0003rd trimester 1,000-50,000 Wet Prep: (DAWSON: 04/18/2017 07:12) ( [facility] [place] 04/18/2017 07:30) Final results SPECIMEN DESCRIPTION: DARK BLOOD Test Result Flag Units (Reference) WET MOUNT CLUE CELLS:: NONE EPITHELIAL CELLS: RARE -- SOURCE?: VAGINAL WHITE BLOOD CELLS: NONE TRICHOMONAS:: NONE -- YEAST:: NONE Type & Screen: (DAWSON: 04/18/2017 07:00) ( [facility] [place] 04/18/2017 09:45) Final results Test Result Flag Units (Reference) PATIENT BLOOD TYPE Above is a corrected result. Previously reported on ( [facility] 04/18/2017 09:17) as: PATIENT BLOOD TYPE ANTIBODY SCREEN NEGATIVE Type & Rh: (DAWSON: 04/18/2017 07:00) ( MsgRcvd 04/18/2017 07:23) Final results Test Result Flag Units (Reference) PATIENT BLOOD TYPE O Positive . PROGRESS AND PROCEDURES Course of Care: the patient is a 31-year-old female who is a presenting for evaluation of bleeding during . Patient states that she has not had a ultrasound yet however has established care with an TELEGRAPH OFFICE ROUTE AIDE. Patient states that her weight TELEGRAPH OFFICE ROUTE AIDE is over at [facility]. Patient is reporting some suprapubic abdominal cramping more on the right. Patient reports bleeding improving at this time. Differential diagnosis includes ectopic versus viable intrauterine versus threatened . Laboratory studies have been ordered. Ultrasound is also been ordered as well. Offered pain medication however patient declines at this time. Patient is agreeable to the treatment plan. The patient's workup was remarkable for the findings above. Because the patient's abnormal ultrasound, had a discussion with TELEGRAPH OFFICE ROUTE AIDE. Later confirm the abnormal ultrasound with radiology. Because of the abnormal ultrasound, TELEGRAPH OFFICE ROUTE AIDE head stated that they will come in and see the patient. Had discussion with TELEGRAPH OFFICE ROUTE AIDE and the options at this time would be expectant management versus surgery. Patient was updated on the plan of care as well as her diagnosis. All questions have been answered. We are currently awaiting TELEGRAPH OFFICE ROUTE AIDE's bedside evaluation. TELEGRAPH OFFICE ROUTE AIDE consult obtained. The patient will be monitored closely as an outpatient with repeat ultrasound. Did not fill patient is being admitted to the hospital car further emergency department workup/evaluation. Patient has a nonsurgical abdomen. Discussed with the patient workup here in emergency department including diagnosis, home care, follow-up, and return precautions. All questions have been answered. The patient expressed understanding of these instructions and was agreeable to them. Consult obtained. TELEGRAPH OFFICE ROUTE AIDE. Disposition: Discharged. Condition: good. CLINICAL IMPRESSION Acute pelvic pain. Threatened . (Electronically signed by Renzo Garcia Dr. 04/20/2017 16:33) Time Seen: 629. Arrived- By private vehicle. Historian- patient. HISTORY OF PRESENT ILLNESS Chief Complaint: VAGINAL BLEEDING. This started today. She has had heavy vaginal bleeding (large clot described as tennis ball sized). Is still present but is improving. It was abrupt in onset and has been intermittent but is not gone now. Gestational age is weeks, (about 12 weeks ). (Has care. No ultrasound. Blood work ordered. ). Similar symptoms previously: None. Recent medical care: Not recently seen/assessed. REVIEW OF SYSTEMS No nausea, vomiting, black stools, bloody stools or double vision. No fainting episodes, fever, difficulty breathing, chest pain or skin rash. no weakness. no dizziness. All systems otherwise negative, except as recorded above. PAST HISTORY See nurses notes. Medications: None. Allergies: None. SOCIAL HISTORY Never smoker. No alcohol use or drug use. No recent travel. Is a local resident. ADDITIONAL NOTES The nursing notes have been reviewed. PHYSICAL EXAM Vital Signs: 04/18/2017 06:31 BP: 142/37. HR: 99. RR: 14. O2 saturation: 100%. Temp: 97.6 F. Pain level now: 0/10. Blood pressure normal. Oxygen saturation normal. Appearance: Alert. Oriented X3. No acute distress. HEENT: Normal external inspection. Eyes: No pale conjunctivae. ENT: Pharynx normal. No pharyngeal erythema. CVS: Heart sounds normal. Respiratory: No respiratory distress. Breath sounds normal. Chest nontender. Abdomen: Soft and nontender. Bowel sounds normal. Pelvic: Normal external exam. No contractions present. (mild moderate right adnexal tenderness with left sided tenderness. No adnexal masses. No active bleeding. Normal-appearing external female genitalia. Cervical os is closed. No cervical motion tenderness. No lesions. No abnormal discharge. Exam performed at all times with MARY noriega). Skin: Skin warm and dry. Normal skin color. No rash. Normal skin turgor. Extremities: Extremities nontender. No pathologic edema. LABS, X-RAYS, AND EKG Pelvic Sonogram: viable intrauterine with possible ectopic in the right adnexa. Physiologic free fluid. not concerning for blood. The study was independently viewed by me and interpreted by the radiologist. The study was discussed with the radiologist (Via phone). Laboratory Tests: UA-Culture if indicated: (DAWSON: 04/18/2017 08:05) ( MsgRcvd 04/18/2017 08:36) Final results Test Result Flag Units (Reference) URINE COLOR YELLOW URINE APPEARANCE CLEAR URINE GLUCOSE NEGATIVE (NEGATIVE) URINE BILIRUBIN NEGATIVE (NEGATIVE) URINE KETONE NEGATIVE (NEGATIVE) URINE SPECIFIC GRAVITY <= 1.005 L (1.010-1.030) URINE PH 6.0 (5.0-8.0) URINE PROTEIN NEGATIVE (NEGATIVE) URINE UROBILINOGEN 0.2 EU/dL (0.2-1.0) URINE NITRITE NEGATIVE (NEGATIVE) URINE BLOOD NEGATIVE (NEGATIVE) URINE LEUK ESTERASE NEGATIVE (NEGATIVE) URINE RBC RARE rbc/hpf (0-1) URINE WBC NONE SEEN wbc/hpf (0-1) URINE EPITHELIAL CELLS 1-3 EPI/hpf (0-5) URINE BACTERIA FEW (1+) (NONE SEEN) URINE COMMENT CULT NOT INDICATED URINE CULTURES ARE SET-UP BASED ON THE FOLLOWING CRITERIA:POSITIVE NITRITEPOSITIVE LEUKOCYTE ESTERASEGREATER THAN 10 WHITE BLOOD CELLSMODERATE (2+) OR GREATER BACTERIA CBC w Diff: (DAWSON: 04/18/2017 07:00) ( MsgRcvd 04/18/2017 07:12) Final results Test Result Flag Units (Reference) WHITE BLOOD COUNT 10.2 K/uL (4.5-11.5) RED BLOOD COUNT 4.23 M/uL (4.00-5.20) HEMOGLOBIN 12.8 gm/dL (12.0-16.0) HEMATOCRIT 38.0 % (36.0-46.0) MEAN CELL VOLUME 90 fL (80-100) MEAN CORPUSCULAR HGB 30 pg (26-34) MEAN CORPUSCULAR HGB CONC 34 g/dL (31-37) RED CELL DISTRIBUTION WIDTH 12.8 % (11.6-14.8) PLATELET COUNT 294 K/uL (150-400) NEUTROPHIL % 74.3 % (50-75) LYMPH % 18.9 L % (25-40) MONO % 5.8 % (3-14) EOSINOPHIL % 0.7 % (0-4) BASOPHIL % 0.3 % (0-2) PT with INR: (DAWSON: 04/18/2017 07:00) ( MsgRcvd 04/18/2017 07:21) Final results Test Result Flag Units (Reference) INR 1.0 (0.8-1.2) Low Intensity Therapy: INR 1.5-2.0 PT range 18.5-23.1Mod.Intensity Therapy: INR 2.0-3.0 PT range 23.1-31.5High Intensity Therapy: INR 2.5-3.5 PT range 27.4-35.5High Intensity Therapy 2: INR 3.0-4.0 PT range 31.5-39.3 CMP: (DAWSON: 04/18/2017 07:00) ( [facility] 04/18/2017 07:45) Final results Test Result Flag Units (Reference) GLUCOSE 104 mg/dL (70-110) BUN 6 L mg/dL (7-18) CREATININE 0.7 mg/dL (0.6-1.3) Estimated GFR >60 mL/min Estimated GFR- >60 mL/min Note: Persistent reduction over 3 months in eGFR<60 mL/min/1.73 m2 defines CKD. Patients with eGFR values>=60 mL/min/1.73 m2 may also have CKD if evidence ofpersistent proteinuria. Additional information may be foundat www.kidney.org. SODIUM 138 mmol/L (136-145) POTASSIUM 3.6 mmol/L (3.5-5.1) CHLORIDE 103 mmol/L (98-107) CARBON DIOXIDE 23 mmol/L (21-32) CALCIUM 9.0 mg/dL (8.5-10.1) TOTAL PROTEIN 7.5 g/dL (6.4-8.2) ALBUMIN 3.6 g/dL (3.3-5.0) BILIRUBIN, TOTAL 0.3 mg/dL (0.0-1.0) ALKALINE PHOSPHATASE 66 U/L (46-116) AST (SGOT) 11 L U/L (15-37) ALT (SGPT) 18 U/L (12-78) BETA HCG, QUANTITATIVE 077054 mIU/mL REFERENCE RANGE:Adult Males: <2 mIU/mLNon- Females: <6 mIU/mL Females:Approximate Approximate hCGGestational Age Range (mIU/mL) 0-1 week 0-501-2 weeks 40-3002-3 weeks 100-13886-9 weeks 500-60850-1 months 5,000-200,0002-3 months 10,000-100,0002nd trimester 3,000-50,0003rd trimester 1,000-50,000 Wet Prep: (DAWSON: 04/18/2017 07:12) ( [facility] 04/18/2017 07:30) Final results SPECIMEN DESCRIPTION: DARK BLOOD Test Result Flag Units (Reference) WET MOUNT CLUE CELLS:: NONE EPITHELIAL CELLS: RARE -- SOURCE?: VAGINAL WHITE BLOOD CELLS: NONE TRICHOMONAS:: NONE -- YEAST:: NONE Type & Screen: (DAWSON: 04/18/2017 07:00) ( [facility] 04/18/2017 09:17) IP Test Result Flag Units (Reference) PATIENT BLOOD TYPE Type & Rh: (DAWSON: 04/18/2017 07:00) ( [facility] 04/18/2017 07:23) Final results Test Result Flag Units (Reference) PATIENT BLOOD TYPE O Positive . PROGRESS AND PROCEDURES Course of Care: the patient is a 31-year-old female who is a presenting for evaluation of bleeding during . Patient states that she has not had a ultrasound yet however has established care with an TELEGRAPH OFFICE ROUTE AIDE. Patient states that her weight TELEGRAPH OFFICE ROUTE AIDE is over at [facility]. Patient is reporting some suprapubic abdominal cramping more on the right. Patient reports bleeding improving at this time. Differential diagnosis includes ectopic versus viable intrauterine versus threatened . Laboratory studies have been ordered. Ultrasound is also been ordered as well. Offered pain medication however patient declines at this time. Patient is agreeable to the treatment plan. The patient's workup was remarkable for the findings above. Because the patient's abnormal ultrasound, had a discussion with TELEGRAPH OFFICE ROUTE AIDE. Later confirm the abnormal ultrasound with radiology. Because of the abnormal ultrasound, TELEGRAPH OFFICE ROUTE AIDE head stated that they will come in and see the patient. Had discussion with TELEGRAPH OFFICE ROUTE AIDE and the options at this time would be expectant management versus surgery. Patient was updated on the plan of care as well as her diagnosis. All questions have been answered. We are currently awaiting TELEGRAPH OFFICE ROUTE AIDE's bedside evaluation. Ebonie note: This patient was signed out to me by Dr. Garcia, pending evaluation by Dr. Harrison for a possible heterotopic . Dr. Harrison did come to the emergency department and normally evaluated the patient but spoke with 2 radiologist regarding the patient's ultrasound. It was felt, given the findings on ultrasound, the radiology interpretation, and the patient's physical exam findings, that the likelihood of a heterotopic is extremely low. Dr. Harrison did state that in light of all this, the patient can follow up with her TELEGRAPH OFFICE ROUTE AIDE later this week for a repeat ultrasound, to determine whether there is any change in the area of question. Patient was stable throughout her stay in the emergency department and was deemed stable for discharge home. Consult obtained. TELEGRAPH OFFICE ROUTE AIDE. Patient counseled in person regarding the patient's stable condition, test results, diagnosis and need for follow-up. Concerns were addressed. Old medical records reviewed. Disposition: Discharged. Condition: stable. CLINICAL IMPRESSION First trimester . Threatened . INSTRUCTIONS Drink plenty of fluids. (You will need to follow up with your TELEGRAPH OFFICE ROUTE AIDE toward the end of the week, to have a repeat ultrasound. You should call first thing on Wednesday morning, which is tomorrow, to make an appointment for this. Please let them know that your ultrasound showed a possible in the uterus and a possible outside of the uterus, though the likelihood of a outside of the uterus with one in the uterus is very low. Nonetheless, it is important for you to follow up and get this sorted out.). Warnings: Further evaluation is necessary. GENERAL WARNINGS: Return or contact your physician immediately if your condition worsens or changes unexpectedly, if not improving as expected, or if other problems arise. Follow-up: Follow up with an crew leader. Call for the next available appointment. Understanding of the discharge instructions verbalized by patient. (Electronically signed by Sierra Loomis MD 04/18/2017 23:50)
--- NOTE | 2017-04-18 11:56 | ED ORDER SUMMARY ---
..... Patient: ROSE MARIE HENDRICKSON OrderSheet [facility] VisitID: [id number] [place] [address] 31y, F Registration Date/Time: 04/18/2017 ORDER SHEET Weight: Allergies: None GENERAL ORDERS: GC/Chlamydia (Cervix) (dark blood) Urgent (06:45 04/18/2017 Daphne Rhodes) (Ack 6:47 CHagerty ER Back Panel Padder) (Collected 7:19 RMarsden R.N.) (7:23 JSimbeck R.N.) Wet Prep (Vaginal) (dark blood) Urgent (06:45 04/18/2017 Daphne Rhodes) (Ack 6:47 CHagerty ER Back Panel Padder) (Collected 7:19 RMarsden R.N.) (7:23 JSimbeck R.N.) CBC w Diff Urgent (06:46 04/18/2017 Daphne Rhodes) (Ack 6:47 CHagmejia ER Back Panel Padder) (Collected 7:19 RMarsden R.N.) (7:23 JSimbeck R.N.) CMP Urgent (06:46 04/18/2017 Daphne Rhodes) (Ack 6:47 Nicky ER Back Panel Padder) (Collected 7:19 RMarsden R.N.) (7:23 JSimbeck R.N.) UA-Culture if indicated Urgent (06:46 04/18/2017 Daphne Rhodes) (Ack 6:47 Nicky ER Back Panel Padder) (Collected 7:19 RMarsden R.N.) (8:09 JSimbeck R.N.) PT with INR Urgent (06:46 04/18/2017 Daphne Rhodes) (Ack 6:47 Nicky ER Back Panel Padder) (Collected 7:19 RMarsden R.N.) (7:23 MAYAimbeck R.N.) Type & Rh Urgent (06:46 04/18/2017 Daphne Rhodes) (Ack 6:47 Nicky ER Back Panel Padder) (Collected 7:19 RMarsden R.N.) (7:44 MAYAimbeck R.N.) Serum Quantitative Urgent (06:46 04/18/2017 Daphne Rhodes) (Ack 6:47 CHagerty ER Back Panel Padder) (Collected 7:19 RMarsden R.N.) (7:23 JSimbeck R.N.) Pelvic Exam Setup (06:46 04/18/2017 Daphne Rhodes) (7:19 RMbetsy R.N.) US OB 1st Trimester (February) Urgent (06:52 04/18/2017 Daphne Rhodes) (Ack 6:53 CHagerty ER Back Panel Padder) (9:06 KHoerner) (Cancelled: Duplicate Order9:17 Daphne Rhodes) Type & Screen Urgent (09:08 04/18/2017 Daphne Rhodes) (Ack 9:10 KHoerner) (9:16 KHoerner) US OB 1st Trimester w Transvag (february) Urgent (09:17 04/18/2017 Daphne Rhodes) (9:21 KHoerner) MEDICATION ORDERS: IV FLUIDS: IV NS : initial bolus 1000 mL (1000 mL/hr), then 125 mL/hr for 8h (NOW) (10:22 04/18/2017 Daphne Rhodes) (10:28 LSullivan R.N.) Zofran IV 8 mg (NOW) (10:36 04/18/2017 LSullivan R.N. verbal order read back to Yennifer DOUGLASS) (10:36 LSullivan R.N.) ORDER SHEET NOTES: [Electronically signed by Surendra Alvares R.N. (18:38 04/18/2017)] [Electronically signed by Sierra Looims MD (23:50 04/18/2017)] [Electronically signed by Renzo Garcia Dr. (16:33 04/20/2017)] [Electronically locked/signed by Surendra Alvares R.N. (18:38 04/18/2017)]
--- NOTE | 2017-04-18 11:56 | ED NURSING NOTES ---
Clinical Report - Nurses [facility] [address] [place] [address] 04/18/2017 6:27 Patient: ROSE MARIE HENDRICKSON TRIAGE Triage time 06:31. Acuity: LEVEL 3. Chief Complaint: PASSING TISSUE. 06:44 04/18/17. Alert. No acute distress. SEPSIS SCREEN: Sepsis Screen. Negative (no infection suspected/documented). LANE COMA SCORE: Walden Coma Scale: 15- eyes open spontaneously (4); best verbal response- oriented x 4 (5); best motor response- obeys commands (6). --06:44 Heide Martin R.N. 06:31 04/18/17. BP: 142/37. HR: 99. RR: 14. O2 saturation: 100% on room air. Temp: 97.6 F. Pain level now: 0/10. --06:44 Heide Martin R.N. Medications None. --06:35 Heide Martin R.N. Allergies None. --06:35 Heide Martin R.N. History Arrived by private vehicle. Historian: patient. Primary physician (Dr Davison). This started today. ( Patient states she passed a large clot about the size of a the [place] this morning). She has had vomiting. ( cramping). PAST MEDICAL HX: Immunizations: up-to-date. Confirmed : patient states she is around 12-13 weeks . SOCIAL HX: Never smoker. No alcohol use or drug use. FALL RISK ASSESSMENT: Fall risk assessment completed. No fall risk identified. NUTRITIONAL RISK ASSESSMENT: The nutritional risk assessment revealed no deficiencies. FUNCTIONAL ASSESSMENT: Functional assessment: no impairments noted. LEARNING NEEDS ASSESSMENT: The learning needs assessment revealed no barriers. SKIN INTEGRITY ASSESSMENT: Skin integrity risk assessment completed. No skin integrity risk identified. --06:44 Heide Martin R.N. PROBLEMS: Pharyngitis. --06:35 Heide Martin R.N. ADDITIONAL SURGERIES: Tonsillectomy. Ruth teeth . --06:35 Heide Martin R.N. Interventions ID band on patient. To treatment room. --06:44 Heide Martin R.N. PHYSICAL ASSESSMENT 06:45 04/18/17. Ambulatory to room. GENERAL / NEURO / PSYCH: Alert. Oriented X 4. Appears in no acute distress. HEENT: Mucous membranes are pink. RESPIRATORY: Respirations not labored. CVS: Capillary refill less than 2 seconds. GI / : Abdomen soft and nontender. SKIN: Skin is warm and dry. --06:45 Heide Martin R.N. NURSING PROGRESS NOTES 06:45 04/18/17. Patient gowned. Two patient identifiers checked. Call light placed in reach. Side rails up x 1. Bed placed in lowest position. Brakes of bed on. Patient ready for evaluation- chart flagged and notification provided. --06:45 Heide Martin R.N. 06:48 04/18/2017 Two (2) unsuccessful IV access attempts including the right antecubital space and forearm. --07:03 Heide Martin R.N. 06:59 04/18/2017 Site #1 started via IV in the left antecubital space with an 20g angiocath; one attempt. Blood drawn: rainbow set. Labeled in the presence of the patient and sent to the lab. Saline lock flushed with 5 mL saline (placed by MARY Cadet). --07:04 Heide Martin R.N. 07:18 04/18/17. ( assisted with pelvic exam performed by ED phys.). --07:18 Heide Martin R.N. Care transferred and report received (MARY Jaeger). --07:24 Surendra Alvares R.N. ( US here at the bedside). --08:27 Surendra Alvares R.N. 09:20 04/18/17. BP: 101/56. HR: 81. RR: 16. O2 saturation: 100% on room air. Pain level now: 0/10. --09:23 Surendra lAvares R.N. Head of bed elevated. Reassurance given. Call light placed in reach. Bed placed in lowest position. Brakes of bed on. ( Resting quietly, c/o feeling dehydrated, no pain.). --09:23 Surendra Alvares R.N. <<STRICKEN ENTRY-- 10:28 04/18/2017 Started bag #2 1000 mL IV Fluids IV NS (Saline); at 1000 mL/hr via site #1 via IV pump. Confirmed 5 rights. --10:28 Heidi Meza R.N. --END STRIKE>> Change to Details. --10:29 Heidi Meza R.N. 10:28 04/18/2017 Started bag #2 1000 IV Fluids IV NS (Saline); at 1000 mL/hr via site #1 via IV pump. Confirmed 5 rights. (Pt already had bag #1, hanging on wall at [facility] and not attached.). --10:29 Heidi Meza R.N. 10:29 04/18/17. BP: 86/36. HR: 84. RR: 18. O2 saturation: 99%. --10:31 Heidi Meza R.N. 10:36 04/18/2017 Zofran (Ondansetron HCl) IVP 8 mg given over 4 minute(s) via site #1. Allergies verified and confirmed 5 rights. --10:36 Heidi Meza R.N. 10:37 04/18/17. BP: 101/52. HR: 86. RR: 16. O2 saturation: 100%. --10:38 Heidi Meza R.N. late entry -10:30. ( OB doctor here to see pt). --10:52 Surendra Alvares R.N. 11:00 04/18/17. BP: 109/60. HR: 93. RR: 16. O2 saturation: 100% on room air. Pain level now: 02/15. --11:28 Surendra Alvares R.N. Pulse oximeter and NIBP monitor placed on patient; monitor alarms on. Head of bed elevated. Reassurance given. Call light placed in reach. Bed placed in lowest position. Brakes of bed on. --11:28 Surendra Alvares R.N. 11:32 04/18/2017 IV Fluids IV NS Bag Change: bag #2 completed. Total amount infused: 1000. STARTED bag #3 (1000 mL) at 125 mL/hr via IV pump. Confirmed 5 rights. IV patency established. IV site checked: no pain, redness, or swelling. IV flushed thoroughly. --11:32 Surendra Alavres R.N. 12:25 04/18/2017 IV Fluids IV NS Discontinued: bag #3 upon discharge. Total amount infused: 120 mL. IV patency established. IV site checked: no pain, redness, or swelling. IV flushed thoroughly. --12:28 Surendra Alvares R.N. 12:00 04/18/17. BP: 101/56. HR: 82. RR: 16. O2 saturation: 98% on room air. --12:32 Surendra Alvares R.N. DISPOSITION / DISCHARGE 12:04/18/2017 Site #1 removed upon discharge. Bandage applied. --12:27 Surendra Alvares R.N. Departure time: 1226. Condition at departure: improved and stable. No learning barriers present. Discharge instructions provided and reviewed with the patient. Reviewed warnings. Reviewed referrals. Patient verbalized understanding. Written instructions provided in Italian. The patient was discharged by the physician. She was discharged home and accompanied by spouse. She left the Emergency Department ambulatory and via private vehicle. Spouse driving. --12:30 Surendra Alvares R.N. 12:25 04/18/17. BP: 101/56 (regular adult cuff) taken on the right arm, while lying. HR: 82. RR: 16. O2 saturation: 99% on room air. Temp: 98.2 F (oral). Pain level now: 03/17. --12:30 Surendra Alvares R.N. Locked/Released at 04/18/2017 18:38 by Surendra Alvares R.N.
--- NOTE | 2017-04-18 14:07 | CONSULTATION REPORT ---
DATE OF CONSULTATION: 04/18/2017 CHIEF COMPLAINT: 1. The patient is a 31-year-old 2, para 1 female who [facility] emergently [facility] department with a complaint of vaginal bleeding in early HISTORY OF PRESENT ILLNESS: The patient reports this is her second . She delivered vaginal 10 years ago, with her complicated by kidney stones. She reports that her last menstrual period was sometime in February and that her periods are quite irregular. She had not been using any control and was actively hoping to conceive. She receives her care at [facility] and has already been in to have her initial lab work done but has not yet had her first appointment or ultrasound. She reports that she has not felt well in general for the last 4 weeks, with some abdominal bloating and constipation problems. She also reports 2 prior episodes of some spotting. 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 Here, her vital signs were stable, and she was afebrile. PHYSICAL EXAMINATION: GENERAL: On physical examination, the patient is a pleasant, cooperative, comfortable-appearing white female. VITAL SIGNS: Stable. The patient is afebrile. PELVIC: The patient declines a repeat pelvic examination, though by report of the initial emergency department physician, the patient did not have marked adnexal tenderness on either side. ABDOMEN: The patient's abdomen is soft. There is 1+ tenderness on the left and trace tenderness in the suprapubic region and on the right lower quadrant. There was no rebound or guarding. LAB/IMAGING: Labs were remarkable for a hemoglobin of 12.8, blood type of O positive, a normal electrolyte panel, a normal glucose and creatinine and quantitative HCG of 114,000. An ultrasound was obtained, which showed a viable 8.4 week intrauterine gestation with a heartbeat and a 2 cm subchorionic hemorrhage. The patient was also noted to have a left-sided ovarian cyst. Some free fluid in the cul-de-sac was noted that was not clear and definitely not blood. There was also some question regarding a right adnexal versus cul-de-sac mass. The right tube and ovary itself looked normal. There was a cystic structure located in the cul-de-sac that, were it to be a gestation, would have a gestational age consistent with the intrauterine gestation. However, there were no elements of a pole present. I personally discussed the ultrasound findings both with the radiologists, Dr. Godinez and Dr. Dick. Please see Dr. Dick's ultrasound report. In summary, he felt that the chances that this cul-de-sac finding could represent a heterotopic would be extraordinarily unlikely, in the range of 1 in 40,000. He did recommend a followup ultrasound within the next week, as did Dr. Godinez. IMPRESSION/PLAN: I discussed the clinical situation with the patient and her at great length. Regarding the intrauterine and bleeding, this represents a threatened spontaneous . We discussed that with the visible 2.1 cm retroplacental bleed, she will continue to bleed for at least the next week or so. Instructions were given that she should return should the bleeding increase to the point where she is soaking a pad every hour for 2 hours or passes tissue or has marked increase in pain. Regarding the ultrasound findings, lower abdominal tenderness and pain complaints, we discussed that this most likely represents a transient and benign gynecologic process related to the , such as a ruptured ovarian follicle, though healthy- appearing corpus luteum of is noted on the left. Other possibilities would include bowel epiploica or possibly a paraovarian cyst which could be torsed. In any case, though surgical exploration via laparoscopy was offered to the patient and her , it does not seem clearly warranted at this time. Ectopic precautions such as to return for neck or shoulder pain, fainting, or significant increase in abdominal pain, were carefully explained to both of them. The plan then is to discharge the patient to home in self care. She will contact her primary obstetrical caregiver tomorrow, with the plan to be reimaged in 5 days, unless symptoms worsen, and then she is to return here or the closest emergency department. The patient and her expressed good understanding of all the above, especially the ongoing risk of a miscarriage, and were discharged to home in self care after discussion with the emergency physician.
--- NOTE | 2017-04-20 16:34 | ED DISCHARGE INSTRUCTIONS ---
Patient: ROSE MARIE HENDRICKSON General Instructions [facility] VisitID: [id number] [place] [address] 31y, F Registration Date/Time: 04/18/2017 Acute pelvic pain. Threatened . ADDITIONAL INFORMATION Pelvic Pain, Uncertain Cause Based on your visit today, the exact cause of your pelvic pain is not certain. But your condition does not appear to be serious at this time. However, the signs of a serious problem may take more time to appear. Therefore, it is important for you to watch for any new symptoms or worsening of your condition. Home Care: Rest until you are feeling better. Avoid sexual intercourse until your pain goes away. You may use acetaminophen (Tylenol) or ibuprofen (Motrin, Advil) to control pain, unless another medicine was prescribed. [NOTE: If you have chronic liver or kidney disease or ever had a stomach ulcer or GI bleeding, talk with your doctor before using these medicines.] Follow Up with your doctor as advised. If a culture test was taken, call in two days for the results. If the culture is positive, you will be given more advice at that time. Otherwise, follow-up with your doctor or this facility as instructed. Get Prompt Medical Attention if any of the following occur: Fever of 100.4F (38C) or higher, or as directed by your healthcare provider Vaginal discharge Worsening pain Weakness, dizziness or fainting Unexpected vaginal bleeding or passage of salinas or white tissue from the vagina Pain that moves to the right lower abdomen Abdominal Pain,Possible Appendicitis [Repeat Exam, Female] Based on your visit today, the exact cause of your abdominal (stomach) pain is not certain. However, you do have some of the early signs of APPENDICITIS. Early in an appendix infection the symptoms can be similar to a simple "stomach ache" or "stomach flu". Therefore, the diagnosis can be hard to make. Since an appendix infection is a serious condition, it is important to know if this is the cause of your symptoms. WAITING for more time to pass and repeating the exam is the best way to find out whether you have appendicitis. Within the next 12-24 hours the cause of your stomach pain should become clear. It is important for you to watch for any new symptoms or worsening of your condition. (See below). Home Care: Rest until your next exam. No strenuous activities. Eat a diet low in fiber (called a low-residue diet). Foods allowed include refined breads, white rice, fruit and vegetable juices without pulp, tender meats. These foods will pass more easily through the intestine. Avoid whole-grain foods, whole fruits and vegetables, meats, seeds and nuts, fried or fatty foods, dairy, alcohol and spicy foods until your symptoms go away. In some cases, you may be asked not to eat or drink anything until you are re-examined. Return for another exam exactly as directed. Follow Up with your doctor or this facility as directed. Get Prompt Medical Attention if any of the following occur: Pain gets worse or moves to the right lower abdomen New or worsening vomiting or diarrhea Swelling of the abdomen Unable to pass stool for more than three days Fever of 100.4F (38C) or higher, or as directed by your healthcare provider Blood in vomit or bowel movements (dark red or black color) Weakness, dizziness or fainting Unexpected vaginal bleeding Abdominal Pain And Early [R/O Sab, Ectopic: Serial Q-Hcg's] Based on your visit today, we know you are . But, the exact cause of your abdominal (stomach) pain is not certain. Some pain or bleeding may occur in a NORMAL . But pain may also be a sign of a MISCARRIAGE or an ECTOPIC (baby growing in the Fallopian tube instead of the uterus). An ectopic is a very serious condition. It can lead to severe internal bleeding and even . Therefore, further tests are needed to find out the cause of your symptoms. These may include: ULTRASOUND - A pelvic ultrasound can detect a normal as early as 4-5 weeks of age. But, if the ultrasound test does not show the baby inside the uterus, it means that i) you have a normal less than 4 weeks old, ii) you are having or recently had a miscarriage or iii) you have an ectopic . QUANTITATIVE HCG - a test that measures the amount of hormone in your blood. Comparing today's test result to a repeat test in 48 hours shows whether or not you have a normal . LAPAROSCOPY - a surgical procedure where a tube with a light is placed inside the abdomen to look directly at the pelvic organs. This is used when it is not safe to wait 48 hours for blood test results. Important If you do have an ectopic , there is a small chance that the growing fetus can tear the Fallopian tube and cause severe internal bleeding. If this happens, there may be SUDDEN SEVERE LOWER ABDOMINAL PAIN, VAGINAL BLEEDING, WEAKNESS, DIZZINESS and sometimes FAINTING. If any of these symptoms occur: CALL AN AMBULANCE (call 911) or return immediately to the hospital. DO NOT DRIVE YOURSELF. DO NOT GO TO YOUR DOCTOR'S OFFICE OR TO A CLINIC. Home Care: Rest until your next exam. Do not perform any strenuous activity. Eat a light diet with foods that are easy to digest. Avoid sexual intercourse until all symptoms have gone away and you are cleared by your doctor. Follow Up with your doctor or this facility as advised for repeat blood testing. [NOTE: If you had an X-ray or ultrasound test, it will be reviewed by a specialist. You will be notified of any new findings that may affect your care.] Get Prompt Medical Attention if any of the following occur: Sudden or gradual worsening abdominal pain Fainting, dizziness or weakness when standing Heavy vaginal bleeding (soaking one pad an hour for three hours) Vaginal bleeding for more than 5 days Repeated vomiting or diarrhea Pain that moves to the right lower abdomen (stomach) Blood in vomit or bowel movements (dark red or black color) Fever of 100.4F (38C) or higher, or as directed by your healthcare provider You have been given the following additional information: Pelvic Pain, Unknown Cause Abdominal Pain, Possible Appendicitis (Female) Abdominal Pain, Early (Electronically signed by Renzo Garcia Dr. 04/20/2017 16:33) First trimester . Threatened . INSTRUCTIONS Drink plenty of fluids. (You will need to follow up with your CLINICAL TRIAL ASSOCIATE toward the end of the week, to have a repeat ultrasound. You should call first thing on Wednesday morning, which is tomorrow, to make an appointment for this. Please let them know that your ultrasound showed a possible in the uterus and a possible outside of the uterus, though the likelihood of a outside of the uterus with one in the uterus is very low. Nonetheless, it is important for you to follow up and get this sorted out.). Warnings: Further evaluation is necessary. GENERAL WARNINGS: Return or contact your physician immediately if your condition worsens or changes unexpectedly, if not improving as expected, or if other problems arise. Follow-up: Follow up with an nurse practical. Call for the next available appointment. Understanding of the discharge instructions verbalized by patient. ADDITIONAL INFORMATION Your exam today shows that you are . During , it is normal to develop tender swollen breasts, frequent urination and mild vaginal discharge. During the first three months, nausea is common. Guidelines For A Healthy : To ensure that your baby is born healthy there are certain things that you can do: When you feel tired, you should REST. This is especially true in the later months of . Your body needs more FLUIDS than you may be used to: You should drink 8-10 glasses of juice, milk or water. Eat well-balanced MEALS at regular intervals to supply your body with enough protein. You can expect a total weight gain of about 30 pounds during the . Do not try to diet or lose weight while you are . Because of the extra nutritional needs during , take one VITAMIN daily. Do not take any other MEDICINE during your (prescribed or [id number]) unless your doctor specifically recommends this. Many drugs can have harmful effects on the growing baby. If NAUSEA or VOMITING become a problem, avoid greasy and fried foods. Eat several smaller meals throughout the day rather than three large meals. If you SMOKE, you must stop. The nicotine you breathe in goes right to the baby. Stay away from ALCOHOL, even in moderate amounts. Daily drinking will harm your baby and can cause permanent brain damage. RECREATIONAL DRUGS are harmful, especially cocaine, crack, and heroin. Marijuana should also be avoided. If you were using recreational drugs or prescribed medicine when you found out that you were , talk to your doctor about possible effects on the fetus. Follow Up: Call to arrange for care. This can be provided by your family doctor, an nurse practical ( specialist) or a primary care clinic. Get Prompt Medical Attention if any of the following occur: Vaginal bleeding Moderate or severe abdominal or back pain Excessive vomiting, unable to keep any fluids down for six hours Burning with urination Headache, dizziness or rapid weight gain Abdominal Pain And Early [R/O Sab, Ectopic: Serial Q-Hcg's] Based on your visit today, we know you are . But, the exact cause of your abdominal (stomach) pain is not certain. Some pain or bleeding may occur in a NORMAL . But pain may also be a sign of a MISCARRIAGE or an ECTOPIC (baby growing in the Fallopian tube instead of the uterus). An ectopic is a very serious condition. It can lead to severe internal bleeding and even . Therefore, further tests are needed to find out the cause of your symptoms. These may include: ULTRASOUND - A pelvic ultrasound can detect a normal as early as 4-5 weeks of age. But, if the ultrasound test does not show the baby inside the uterus, it means that i) you have a normal less than 4 weeks old, ii) you are having or recently had a miscarriage or iii) you have an ectopic . QUANTITATIVE HCG - a test that measures the amount of hormone in your blood. Comparing today's test result to a repeat test in 48 hours shows whether or not you have a normal . LAPAROSCOPY - a surgical procedure where a tube with a light is placed inside the abdomen to look directly at the pelvic organs. This is used when it is not safe to wait 48 hours for blood test results. Important If you do have an ectopic , there is a small chance that the growing fetus can tear the Fallopian tube and cause severe internal bleeding. If this happens, there may be SUDDEN SEVERE LOWER ABDOMINAL PAIN, VAGINAL BLEEDING, WEAKNESS, DIZZINESS and sometimes FAINTING. If any of these symptoms occur: CALL AN AMBULANCE (call 911) or return immediately to the hospital. DO NOT DRIVE YOURSELF. DO NOT GO TO YOUR DOCTOR'S OFFICE OR TO A CLINIC. Home Care: Rest until your next exam. Do not perform any strenuous activity. Eat a light diet with foods that are easy to digest. Avoid sexual intercourse until all symptoms have gone away and you are cleared by your doctor. Follow Up with your doctor or this facility as advised for repeat blood testing. [NOTE: If you had an X-ray or ultrasound test, it will be reviewed by a specialist. You will be notified of any new findings that may affect your care.] Get Prompt Medical Attention if any of the following occur: Sudden or gradual worsening abdominal pain Fainting, dizziness or weakness when standing Heavy vaginal bleeding (soaking one pad an hour for three hours) Vaginal bleeding for more than 5 days Repeated vomiting or diarrhea Pain that moves to the right lower abdomen (stomach) Blood in vomit or bowel movements (dark red or black color) Fever of 100.4F (38C) or higher, or as directed by your healthcare provider You have been given the following additional information: , New Dx Abdominal Pain, Early (Electronically signed by Sierra Loomis MD 04/18/2017 23:50)
--- NOTE | 2017-04-20 16:34 | ED MED RECONCILIATION SUMMARY ---
Patient: ROSE MARIE HENDRICKSON Medication Reconciliation Report [facility] VisitID: [id number] [address] [place] [address] 31y, F Registration Date/Time: 04/18/2017 Weight: (not available) Height/Length: (not available) BMI: (not available) ALLERGIES: None The patient's Home Medications are listed below: NONE. The source(s) of the original Home Medication information: Not obtained. The following Medications were given to the patient in the Emergency Department: IV NS IV Fluids bolus 0, then 1000 mL/hr, administered: 04/18/2017 10:28:00 AM Zofran [IVP] IVP 8 mg, administered: 04/18/2017 10:36:00 AM The following Medications were prescribed to the patient: None.
--- NOTE | 2017-04-20 16:34 | ED MAR SUMMARY ---
..... Medication Administration Record [facility] [address] [place] [address] Patient: ROSE MARIE HENDRICKSON Visit ID: [id number] 31y, F Weight: (not available) Height/Length: (not available) BMI: (not available) ALLERGIES: None Start 10:28 04/18/2017 Heidi Meza RJacque, Stop 12:25 04/18/2017 Surendra Alvares R.N. Medication Administered: IV NS (SALINE), Dose: IV Fluids, Rate: 1000 mL/hr, Dispensed: 1000 mL bag, Site: #1 left AC. Medication Ordered: IV NS : initial bolus 1000 mL (1000 mL/hr), then 125 mL/hr for 8h (NOW). Given 10:36 04/18/2017 Heidi Meza, REdaNEda Medication Administered: ZOFRAN [IVP] (ONDANSETRON HCL), Dose: 8 mg IVP over 4 minute(s), Site: #1 left AC. Medication Ordered: Zofran IV 8 mg (NOW).
--- NOTE | 2017-04-20 16:34 | ED MED RECONCILIATION SUMMARY ---
Patient: ROSE MARIE HENDRICKSON Medication Reconciliation Report [facility] VisitID: [id number] [address] [place] [address] 31y, F Registration Date/Time: 04/18/2017 Weight: (not available) Height/Length: (not available) BMI: (not available) ALLERGIES: None The patient's Home Medications are listed below: NONE. The source(s) of the original Home Medication information: Not obtained. The following Medications were given to the patient in the Emergency Department: IV NS IV Fluids bolus 0, then 1000 mL/hr, administered: 04/18/2017 10:28:00 AM Zofran [IVP] IVP 8 mg, administered: 04/18/2017 10:36:00 AM The following Medications were prescribed to the patient: None.
--- NOTE | 2017-04-20 16:34 | ED MAR SUMMARY ---
..... Medication Administration Record [facility] [address] [place] [address] Patient: ROSE MARIE HENDRICKSON Visit ID: [id number] 31y, F Weight: (not available) Height/Length: (not available) BMI: (not available) ALLERGIES: None Start 10:28 04/18/2017 Heidi Meza RJacque, Stop 12:25 04/18/2017 Surendra Alvares R.N. Medication Administered: IV NS (SALINE), Dose: IV Fluids, Rate: 1000 mL/hr, Dispensed: 1000 mL bag, Site: #1 left AC. Medication Ordered: IV NS : initial bolus 1000 mL (1000 mL/hr), then 125 mL/hr for 8h (NOW). Given 10:36 04/18/2017 Heidi Meza, REdaNEda Medication Administered: ZOFRAN [IVP] (ONDANSETRON HCL), Dose: 8 mg IVP over 4 minute(s), Site: #1 left AC. Medication Ordered: Zofran IV 8 mg (NOW).
== END 2017-04-18 12:25 | disposition home or self-care (01) ==
LOC: ED SRH 06:26
DX: O20.0 Threatened abortion (principal); Z3A.12 12 weeks gestation of pregnancy; O26.891 Other specified pregnancy related conditions, first trimester; R10.2 Pelvic and perineal pain
CPT/HCPCS: 90001; 90004; 90100; 90155; 90195; 90197; 91004; 91227; 91228; 94060; 95059